=== PATIENT | male | born 1995 | race Caucasian/White ===

== ENCOUNTER 2017-05-10 21:31 | Emergency (ER) | payer SELFPAY ==
--- NOTE | ~2017-05-10 | ER ---
PATIENT'S NAME: BRIGIDO CACERES [facility] AGE: 21 Y [address] ROOM: [place] [address] LOCATION: [facility] ADMIT DATE: 05/10/2017 ER/Outpatient Report DISCHARGE DATE: 05/10/2017 FAMILY PHYSICIAN: PHYSICIAN, NO ATTENDING PHYSICIAN: Navneet Garcia Admission date and time documented on the medical record. I saw the patient at 2145 hours. CHIEF COMPLAINT: Dog bite, left mid anterior lower leg. HISTORY OF PRESENT ILLNESS: The patient is a 21-year-old male, whose dog got in a fight with a neighbor's dog. He tried to break up the dog's fight. His dog bit him in the left mid anterior lower leg. He has 2 horizontal lacerations, one measuring 3 cm, one majoring 2.5 cm. No active bleeding. Neurovascularly intact. No other injuries. HOME MEDICATIONS: None. ALLERGIES: NONE. SOCIAL HISTORY: The patient smokes half a pack of cigarettes a day, nondrinker. SIGNIFICANT PAST MEDICAL HISTORY: Tobacco abuse, otherwise negative. OPERATIONS: None. REVIEW OF SYSTEMS: All systems reviewed by me are negative with the exception of those discussed in the history of present illness. PHYSICAL EXAMINATION: VITAL SIGNS: Temperature 98.1 tympanic, pulse 76, respirations 16, blood pressure 123/76, O2 saturation on room air is 98%. EXTREMITIES: On examination, the patient has 2 horizontal lacerations at mid anterior left lower leg. Top laceration is about 3 cm, lower laceration is about 2.5 cm in length. NEUROVASCULAR: Intact. Pulse intact. Wound was cleansed with Betadine and PATIENT'S NAME: CACERESBRIGIDO MCGINNIS [facility] AGE: 21 Y [address] ROOM: [place], [place] [address] LOCATION: [facility] ADMIT DATE: 05/10/2017 ER/Outpatient Report DISCHARGE DATE: 05/10/2017 FAMILY PHYSICIAN: PHYSICIAN, NO ATTENDING PHYSICIAN: Navneet Garcia normal saline. Scrubbed both wounds aggressively with Betadine, cleansed and flushed the wounds out with normal saline. 1% Xylocaine was used for local infiltration anesthesia. Wounds were closed in simple fashion with 4-0 Ethilon suture. Wounds were cleansed and dressed. The patient tolerated the procedure well. IMPRESSION: Dog bite, left anterior lower leg with 2 lacerations total of 5.5 cm. Wounds were closed in simple fashion. PLAN: The patient was given a tetanus update. The patient dismissed home. Observation. Activity as tolerated. Keep wounds clean. Watch for infection. Cleanse and dress wounds daily until healed or sutures out. Return to see personal physician in 10 days for suture removal. Discussion ensued with the patient concerning my findings and recommendations, he understands. MD ELEAZAR ALFRED/modl /[id number] d: 05/10/17 2252 t: 05/11/17 1809, OUTPATIENT REPORT
== END 2017-05-10 22:08 | disposition disaster alternative care site (69) ==
LOC: GACC 21:31
PROC: 0HQLXZZ Repair Left Lower Leg Skin, External Approach (ICD-10-PCS; principal; 2017-05-10)
DX: S81.812A Laceration without foreign body, left lower leg, initial encounter (principal); F17.210 Nicotine dependence, cigarettes, uncomplicated; Z23 Encounter for immunization; W54.0XXA Bitten by dog, initial encounter